=== PATIENT | female | born 1955 | race Caucasian/White ===

== ENCOUNTER 2017-02-14 08:05 | Day surgery (SDC) | payer BC ==
[~2017-02-14] VITALS: Ht 165.1 cm; Wt 100.7 kg
[~2017-02-14 08:05] MED LIST: ACETAMINOPHEN-1 EAC1 PO; ASTEPRO 0.15%30 ML BOTH NARES; AZELASTINE137 MCG/0. BOTH NARES; Ascorbic Acid,Ester- PO; CELEXA40 MG PO; COLACE100 MG PO; COZAAR100 MG PO; DEXILANT60 MG PO; ENDOCET 5-3251 EACH PO; FEOSOL325 MG PO; FLINTSTONES WIT18 MG PO; LASIX40 MG PO; LOVENOX30 MG/0.3 SC; NASONEX17 GM BOTH NARES; NEXIUM40 MG PO; Oyst-Cal D, Oscal W/ PO; SIMVASTATIN40 MG PO; SINGULAIR10 MG PO; SYNTHROID100 MCG PO; SYNTHROID75 MCG PO; THERAGRAN1 TABLET PO; TYLENOL EXTRA500 MG PO; VITAMIN B122500 MCG PO; VITAMIN D-32000 UNI2 PO; ZESTORETIC 10-1 EACH PO; ZESTRIL,PRINIVI40 M1 PO; ZOCOR40 MG PO; ZOCOR5 MG PO; Zocor PO; [UNRECOGNIZED DRUG - OTHER] TP
[2017-02-14 09:20] VITALS: BP 190/85
[2017-02-14 14:01] VITALS: BP 169/76
[2017-02-14 15:09] VITALS: BP 154/74
[2017-02-14 15:25] VITALS: BP 150/74
== END 2017-02-14 15:40 | disposition home or self-care (01) ==
LOC: SDC 08:05
PROC: 0WUF0JZ Supplement Abdominal Wall with Synthetic Substitute, Open Approach (ICD-10-PCS; principal; 2017-02-14)
DX: K43.9 Ventral hernia without obstruction or gangrene (principal); E66.01 Morbid (severe) obesity due to excess calories; Z68.36 Body mass index [BMI] 36.0-36.9, adult; I10 Essential (primary) hypertension; E03.9 Hypothyroidism, unspecified; E78.5 Hyperlipidemia, unspecified; E78.1 Pure hyperglyceridemia; G47.30 Sleep apnea, unspecified; K21.9 Gastro-esophageal reflux disease without esophagitis; F41.9 Anxiety disorder, unspecified; J44.9 Chronic obstructive pulmonary disease, unspecified
CPT/HCPCS: C1781; J0330; J0690; J1100; J1170; J1644; J2250; J2405; J2710; J3010; S0020

== ENCOUNTER 2017-06-01 22:52 | Emergency (ER) | payer BC ==
[~2017-06-01] VITALS: Ht 162.6 cm; Wt 103.3 kg
[2017-06-02 00:15] LABS: MCH 30.7 PG (29.0-34.0); MEAN PLAT.VOLUME 11.3 uM^3 (9.5-12.4); PLATELET COUNT 234 K/uL (156-360); RBC DIS.WIDTH-CV 13.2 % (11.8-14.6); RBC DIS.WIDTH-SD 44.8 % (39-53); WHITE BLOOD COUNT 10.6 K/uL (4.1-10.2)
[2017-06-02 00:27] LABS: CHLORIDE 108 mEq/L (99-109); POTASSIUM 3.7 mEq/L (3.7-5.4); SODIUM 141 mEq/L (136-147)
[2017-06-02 00:29] LABS: GLUCOSE 125 mg/dL (70-99)
[2017-06-02 00:31] LABS: ANION GAP 9 MEQ/L (2-14); TOTAL BILIRUBIN 0.3 mg/dL (0.0-1.0)
[2017-06-02 00:33] LABS: ALKALINE PHOSPHATASE 133 IU/L (3-129); GFR ESTIMATE (CALCULATED) > 59 mL/min/
[2017-06-02 00:34] LABS: UREA NITROGEN (BUN) 24 mg/dL (9-23)
[2017-06-02 00:36] LABS: LIPASE 28 U/L (1.0-51.0)
[2017-06-02] MEDS ORDERED: AUGMENTIN875 MG PO (02:10)
[2017-06-02 03:05] VITALS: BP 179/68
== END 2017-06-02 03:07 | disposition home or self-care (01) ==
LOC: EME 22:52
PROVIDERS: Emergency Medicine
DX: K11.20 Sialoadenitis, unspecified (principal); E86.0 Dehydration; H92.02 Otalgia, left ear; I10 Essential (primary) hypertension; E78.5 Hyperlipidemia, unspecified
CPT/HCPCS: 70487; 80053; 83690; 85027; 99281; 99284; J0360; J0696; J7030; J7050